=== PATIENT | male | born 1975 | race Caucasian/White ===

== ENCOUNTER → 2017-07-19 | Outpatient (CLI) | payer BC ==
[~2017-07-19] MED LIST: ANCEF 1GM1 GM/50 M1 IVPB; ATORVASTATIN CA40 MG PO; CENTRUM SILVER1 EAC2 PO; HYDROCODONE-AP1 EAC6 PO; LISINOPRIL20 MG PO; METFORMIN HCL500 MG PO; MOBIC15 MG PO; POTASSIUM CITRATE PO; REQUIP 1 MG TABL1 M1 PO
--- NOTE | 2017-07-20 13:24 | CON ---
[address] [address] CONSULTATION Name: HAFSA CORDOBA Room: [facility] Tadeo#: [id number] Admission: 07/19/17 Attend Phys: Charan Ordonez DPM Discharge: Date of : 77 Report #: [id number] THIS REPORT FOR: //name// CC: [facility] DATE OF SERVICE: 07/19/2017 INFECTIOUS DISEASE CONSULTATION AND FOLLOWUP [facility] ATTENDING PHYSICIAN: Dr. Charan Ordonez. HISTORY OF PRESENT ILLNESS: The patient returns today in followup for deep infection involving his left foot. He is post toe amputation. He generally had been doing well. He has completed roughly 2 weeks of parenteral therapy for polymicrobial growth, including Staph aureus. He denies any significant pain or discomfort. The incisional site appears to be well approximated. Sutures are in place. It is dry and intact. Inflammation is quite minimal. I reviewed the path report. It was not confirmed to be osteomyelitis. ASSESSMENT AND PLAN: Deep toe infection, polymicrobial. At this point, I think it is reasonable to discontinue the antibiotics and remove the PICC line. There is really no evidence of residual infection at this point. I did discuss with the patient and family members. We will encourage him to call if any problems or concerns. I would see him back as needed. <ELECTRONICALLY SIGNED> By: Roderick Ovalle MD 07/20/17 1324 [id number] Ovalle MD /antione
== END ==
LOC: M.WC 01:52
DX: T87.89 Other complications of amputation stump (principal); E11.9 Type 2 diabetes mellitus without complications; J45.909 Unspecified asthma, uncomplicated; I10 Essential (primary) hypertension; Y83.5 Amputation of limb(s) as the cause of abnormal reaction of the patient, or of later complication, without mention of misadventure at the time of the procedure; Y92.89 Other specified places as the place of occurrence of the external cause

== ENCOUNTER → 2017-08-02 | Outpatient (CLI) | payer BC | LOC: M.WC 01:26 | DX: T87.89 Other complications of amputation stump (principal); E11.9 Type 2 diabetes mellitus without complications; J45.909 Unspecified asthma, uncomplicated; I10 Essential (primary) hypertension; Z85.828 Personal history of other malignant neoplasm of skin; Y83.5 Amputation of limb(s) as the cause of abnormal reaction of the patient, or of later complication, without mention of misadventure at the time of the procedure ==